=== PATIENT | female | born 1975 | race Caucasian/White ===

== ENCOUNTER 2018-10-29 10:03 | Outpatient (CLI) | payer BC ==
--- NOTE | 2018-10-29 11:36 | MMO ---
BILATERAL DIGITAL SCREENING MAMMOGRAMS: History: 43-year-old female presents for digital screening mammography. Comparison: 05-01-17 This study is interpreted with the assistance of computer aided detection. FINDINGS: The breasts are heterogeneously dense which can obscure small masses. There are multiple areas of par enchymal density asymmetry noted bilaterally. Stable typically benign calcifications. IMPRESSION: BIRADS category 2 - benign findings. Continue routine screening. POS: [facility]
== END 2018-10-29 10:04 | disposition home or self-care (01) ==
LOC: SCSMAMMO 10:03
PROVIDERS: ATTEND Obstetrics & Gynecology
DX: Z12.31 Encounter for screening mammogram for malignant neoplasm of breast (principal)
CPT/HCPCS: 77067

== ENCOUNTER 2019-10-23 08:27 | Outpatient (CLI) | payer BC ==
--- NOTE | 2019-10-23 12:16 | MRI ---
MRI BILATERAL BREASTS WITH AND WITHOUT CONTRAST: HISTORY: Left breast pain at the 6 o'clock position for two months. The patient denies a palpable mass. COMPARISON: Mammogram from 09/19/2019 and 10/29/2018. TECHNIQUE: Multiplanar, multisequence MR images were obtained of the bilateral breasts with and without IV contr ast. FINDINGS: There is heterogeneously dense breast parenchyma. Moderate background parenchymal enhancement is seen . No suspicious mass is seen in either breast. No suspicious enhancement is seen within either breast . No axillary adenopathy is seen. No internal mammary lymph nodes are seen. The anterior liver and visualized osseous structures are unremarkable. IMPRESSION: BI-RADS category 1 - negative. POS: CET
== END 2019-10-23 08:28 | disposition home or self-care (01) ==
LOC: BICMRI 08:27
PROVIDERS: ATTEND Obstetrics & Gynecology
DX: N64.4 Mastodynia (principal); N60.12 Diffuse cystic mastopathy of left breast; R92.2 Inconclusive mammogram
CPT/HCPCS: A9577; C8908

== ENCOUNTER 2020-10-05 09:01 | Outpatient (CLI) | payer OTHER ==
--- NOTE | 2020-10-05 10:12 | MMO ---
Bilateral MAMMO Bilat Screen [facility]. CLINICAL HISTORY: Patient is 45 years old and is seen for screening. The patient has no family history of breast cancer. The patient has no personal history of cancer. VIEWS: The views performed were: bilateral craniocaudal with tomosynthesis and bilateral mediolateral oblique with tomosynthesis. FILMS COMPARED: The present examination has been compared to prior imaging studies performed at [facility] on 10/29/2018, and at [facility] on 05/01/2017, 05/29/2017 and 10/23/2019. This study has been interpreted with the assistance of computer-aided detection. MAMMOGRAM FINDINGS: The breasts are heterogeneously dense, which could obscure a lesion on mammography. There are no suspicious masses, suspicious calcifications, or new areas of architectural distortion. IMPRESSION: THERE IS NO MAMMOGRAPHIC EVIDENCE OF MALIGNANCY. A ROUTINE FOLLOW-UP MAMMOGRAM IN 1 YEAR IS RECOMMENDED. THE RESULTS OF THIS EXAM WERE SENT TO THE PATIENT. ACR BI-RADS Category 1 - Negative MAMMOGRAPHY NOTE: 1. A negative mammogram report should not delay a biopsy if a dominant of clinically suspicious mass is present. 2. Approximately 10% to 15% of breast cancers are not detected by mammography. 3. Adenosis and dense breasts may obscure an underlying neoplasm. Reported by: YASHIRA COLE MD Electonically Signed: [id number]
== END 2020-10-05 09:02 | disposition home or self-care (01) ==
LOC: BICMAMMO 09:01
PROVIDERS: ATTEND Family Medicine
DX: Z12.31 Encounter for screening mammogram for malignant neoplasm of breast (principal)
CPT/HCPCS: 77063; 77067